=== PATIENT | female | born 1940 | race Asian ===

== ENCOUNTER 2019-04-06 16:13 | Inpatient (IN) | payer MEDICARE ==
[~2019-04-06] VITALS: Ht 160 cm; Wt 35.6 kg
[2019-04-06 17:33] LABS: BASOPHIL % 0.6 % (0-2); PLATELET COUNT 196 x10^3mcL (130-400); RED CELL DISTRIBUTION WIDTH 13.3 % (11.5-14.5)
[2019-04-06 18:02] LABS: CARBON DIOXIDE 27.4 mmol/L (21-32); CHLORIDE SERUM 97 mmol/L (98-107); CREATININE SERUM 0.4 mg/dL (0.6-1.0); GLUCOSE SERUM 96 mg/dL (74-106); POTASSIUM SERUM 4.1 mmol/L (3.5-5.1); SODIUM SERUM 134 mmol/L (136-145)
[2019-04-06 18:15] LABS: ALBUMIN 4.2 g/dL (3.4-5.0); ALKALINE PHOSPHATASE 51 U/L (46-116); ALT/SGPT 8 U/L (14-59); AST/SGOT 23 U/L (15-37); BILIRUBIN TOTAL 0.8 mg/dL (0.20-1.00); FREE T4 0.96 ng/dL (0.76-1.46); TOTAL PROTEIN, SERUM 7.7 g/dL (6.4-8.2)
[2019-04-06] MEDS ORDERED: TENORMIN25 MG PO (20:48)
[2019-04-06] MEDS ORDERED: SENNA8.6 M2 PO (20:49)
[2019-04-06] MEDS ORDERED: SYNTHROID0.075 MG PO (20:49)
[2019-04-06 23:58] LABS: MAGNESIUM 1.9 mg/dL (1.8-2.4); PHOSPHOROUS 3.5 mg/dL (2.5-4.9)
[2019-04-07 03:45] VITALS: BP 188/74
[2019-04-07 03:51] VITALS: Ht 160 cm; Wt 35.6 kg
[2019-04-07 05:11] VITALS: BP 150/71
[2019-04-07 05:33] LABS: PLATELET COUNT 194 x10^3mcL (130-400); RED CELL DISTRIBUTION WIDTH 13.2 % (11.5-14.5)
[2019-04-07 05:36] LABS: BASOPHIL % 0 % (0-2)
[2019-04-07 05:42] LABS: CALCIUM 9.7 mg/dL (8.5-10.1); CARBON DIOXIDE 27.9 mmol/L (21-32); CHLORIDE SERUM 96 mmol/L (98-107); CREATININE SERUM 0.6 mg/dL (0.6-1.0); GLUCOSE SERUM 78 mg/dL (74-106); MAGNESIUM 1.9 mg/dL (1.8-2.4); PHOSPHOROUS 3.4 mg/dL (2.5-4.9); POTASSIUM SERUM 3.9 mmol/L (3.5-5.1); SODIUM SERUM 134 mmol/L (136-145)
[2019-04-07 05:59] LABS: ALBUMIN 4.2 g/dL (3.4-5.0); BILIRUBIN DIRECT 0.27 mg/dL (0.0-0.2); BILIRUBIN TOTAL 1.19 mg/dL (0.20-1.00); TOTAL PROTEIN, SERUM 7.3 g/dL (6.4-8.2)
[2019-04-07 08:05] VITALS: BP 137/68
[2019-04-07 11:46] VITALS: BP 104/46
[2019-04-07 11:50] LABS: UA SPECIFIC GRAVITY 1.025 (1.005-1.035); microscopic required? YES; urine erythrocyte TRACE (NEGATIVE)
[2019-04-07 11:59] LABS: AMPHETAMINE QUAL UR NONE DETECTED (See below)
[2019-04-07 16:53] VITALS: BP 117/47
[2019-04-07 19:37] VITALS: BP 101/51
[2019-04-08 06:24] VITALS: BP 133/50
[2019-04-08 06:45] LABS: ALBUMIN 3.8 g/dL (3.4-5.0); ALKALINE PHOSPHATASE 48 U/L (46-116); ALT/SGPT 22 U/L (14-59); AST/SGOT 17 U/L (15-37); BILIRUBIN TOTAL 0.7 mg/dL (0.20-1.00); CALCIUM 8.9 mg/dL (8.5-10.1); CARBON DIOXIDE 30.4 mmol/L (21-32); CHLORIDE SERUM 97 mmol/L (98-107); CREATININE SERUM 0.6 mg/dL (0.6-1.0); GLUCOSE SERUM 88 mg/dL (74-106); POTASSIUM SERUM 3.9 mmol/L (3.5-5.1); SODIUM SERUM 135 mmol/L (136-145)
[2019-04-08 07:30] VITALS: BP 121/53
[2019-04-08 15:35] VITALS: BP 96/47
[2019-04-08 22:00] VITALS: BP 118/49
[2019-04-09 04:14] VITALS: BP 112/47
[2019-04-09 07:36] LABS: ALBUMIN 3.6 g/dL (3.4-5.0); ALKALINE PHOSPHATASE 48 U/L (46-116); ALT/SGPT 20 U/L (14-59); AST/SGOT 16 U/L (15-37); BILIRUBIN TOTAL 0.4 mg/dL (0.20-1.00); CALCIUM 8.9 mg/dL (8.5-10.1); CARBON DIOXIDE 31.8 mmol/L (21-32); CHLORIDE SERUM 98 mmol/L (98-107); CREATININE SERUM 0.6 mg/dL (0.6-1.0); GLUCOSE SERUM 84 mg/dL (74-106); POTASSIUM SERUM 4.2 mmol/L (3.5-5.1); SODIUM SERUM 138 mmol/L (136-145); TOTAL PROTEIN, SERUM 6.8 g/dL (6.4-8.2)
[2019-04-09 09:34] VITALS: BP 119/48
[2019-04-09 11:46] VITALS: BP 106/46
[2019-04-09 17:00] VITALS: BP 115/68
[2019-04-09 21:30] VITALS: BP 110/52
[2019-04-10 06:59] VITALS: BP 143/59
[2019-04-10 07:28] LABS: ALBUMIN 3.5 g/dL (3.4-5.0); ALKALINE PHOSPHATASE 55 U/L (46-116); ALT/SGPT 24 U/L (14-59); AST/SGOT 22 U/L (15-37); BILIRUBIN TOTAL 0.4 mg/dL (0.20-1.00); CALCIUM 8.9 mg/dL (8.5-10.1); CARBON DIOXIDE 31.8 mmol/L (21-32); CHLORIDE SERUM 98 mmol/L (98-107); CREATININE SERUM 0.6 mg/dL (0.6-1.0); GLUCOSE SERUM 94 mg/dL (74-106); POTASSIUM SERUM 4.5 mmol/L (3.5-5.1); SODIUM SERUM 136 mmol/L (136-145); TOTAL PROTEIN, SERUM 6.8 g/dL (6.4-8.2)
[2019-04-10 09:25] VITALS: BP 119/51
[2019-04-10 17:00] VITALS: BP 130/57
[2019-04-10 21:00] VITALS: BP 119/67
[2019-04-11 05:48] VITALS: BP 159/66
[2019-04-11 08:31] VITALS: BP 154/58
[2019-04-11 12:08] VITALS: BP 143/55
[2019-04-11 18:00] VITALS: BP 105/50
[2019-04-11 20:35] VITALS: BP 127/52
[2019-04-12 05:53] VITALS: BP 124/50
[2019-04-12 06:58] VITALS: BP 118/60
[2019-04-12 12:01] VITALS: BP 106/57
[2019-04-12 15:49] VITALS: BP 121/53
[2019-04-12 20:31] VITALS: BP 125/60
[2019-04-13 04:44] VITALS: BP 134/60
[2019-04-13 08:10] VITALS: BP 130/53
[2019-04-13 11:41] VITALS: BP 130/53
[2019-04-13 12:14] VITALS: BP 107/52
[2019-04-13] MEDS ORDERED: QUETIAPINE FUMA25 M1 PO (13:46)
[2019-04-13] MEDS ORDERED: LEXAPRO5 M1 PO (13:46)
== END 2019-04-13 13:30 | disposition home health service (06) | DRG 917 ==
LOC: ED 16:13 → MU 23:10
PROVIDERS: Emergency Medicine; ADMIT Internal Medicine
DX: T39.1X2A Poisoning by 4-Aminophenol derivatives, intentional self-harm, initial encounter (principal); E43 Unspecified severe protein-calorie malnutrition; Z68.1 Body mass index [BMI] 19.9 or less, adult; F32.9 Major depressive disorder, single episode, unspecified; M54.5 Low back pain; G20 Parkinson's disease; F02.80 Dementia in other diseases classified elsewhere, unspecified severity, without behavioral disturbance, psychotic disturbance, mood disturbance, and anxiety; I10 Essential (primary) hypertension; E78.5 Hyperlipidemia, unspecified; E03.9 Hypothyroidism, unspecified; Y92.009 Unspecified place in unspecified non-institutional (private) residence as the place of occurrence of the external cause
CPT/HCPCS: 84439; 92526-GN; 92610-GN; 97110-GP; 97112-GP; 97116-GP; 97530-GP; G0378; G0480; J0696; J7030; J7050; Q0092

== ENCOUNTER 2019-05-30 22:09 | Emergency (ER) | payer MEDICARE ==
[~2019-05-30] VITALS: Ht 152.4 cm; Wt 43.1 kg
[~2019-05-30 22:09] MED LIST: ASPIR 8181 MG; LEXAPRO10 MG PO; LEXAPRO5 M1 PO; MAPAP ARTHRITI650 MG PO; QUETIAPINE FUMA25 M1 PO; REFRESH OPTIVE1 EACH; RYTARY1 CE2; SENNA8.6 M2; SENNA8.6 M2 PO; SYN88 PO; SYNTHROID0.075 MG PO; TENORMIN25 MG PO
[2019-05-30 22:18] VITALS: Ht 152.4 cm; Wt 43.1 kg
[2019-05-30 23:42] LABS: CALCIUM 7.7 mg/dL (8.5-10.1); CARBON DIOXIDE 29.1 mmol/L (21-32); CHLORIDE SERUM 101 mmol/L (98-107); CREATININE SERUM 0.5 mg/dL (0.6-1.0); GLUCOSE SERUM 86 mg/dL (74-106); POTASSIUM SERUM 3.4 mmol/L (3.5-5.1); SODIUM SERUM 135 mmol/L (136-145)
[2019-05-30 23:46] LABS: ALKALINE PHOSPHATASE 37 U/L (46-116); ALT/SGPT 22 U/L (14-59); AST/SGOT 16 U/L (15-37); BILIRUBIN TOTAL 1.2 mg/dL (0.20-1.00); LIPASE 135 IU/L (73-393)
[2019-05-30 23:48] LABS: ALBUMIN 2.6 g/dL (3.4-5.0); TOTAL PROTEIN, SERUM 5.4 g/dL (6.4-8.2)
[2019-05-30 23:53] LABS: BASOPHIL % 0.1 % (0-2); PLATELET COUNT 156 x10^3mcL (130-400); RED CELL DISTRIBUTION WIDTH 12.6 % (11.5-14.5)
[2019-05-31 06:25] VITALS: BP 130/52
== END 2019-05-31 06:25 | disposition home or self-care (01) ==
LOC: ED 22:09
PROVIDERS: Emergency Medicine
DX: R11.0 Nausea (principal); I10 Essential (primary) hypertension; E03.9 Hypothyroidism, unspecified; E78.5 Hyperlipidemia, unspecified; Z91.018 Allergy to other foods
CPT/HCPCS: J2405; J7030